=== PATIENT | male | born 1960 | race Caucasian/White ===

== ENCOUNTER 2019-11-13 14:53 | Emergency (ER) | payer OTHER, SELFPAY ==
[2019-11-13 15:06] VITALS: BP 121/77; PULSE 87; RESP 16; TEMP 36.1; O2SAT 100
--- NOTE | 2019-11-13 15:39 | ED.GENADULT ---
HPI - General Adult General Chief complaint: Ear Stated complaint: ear problems Time Seen by Provider: 11/13/19 15:39 Source: patient and RN notes reviewed Mode of arrival: ambulatory Limitations: no limitations History of Present Illness HPI narrative: 59-year-old male presents with complaints of right ear having thick white flaky content in it after treatment for Otitis Externa (11/06/19-11/12/19) for 1 day. Spouse flushed ears out. J Carlos denies itching and drainage from RT ear. J Carlos says RT ear feels better but spouse wants him evaluated. Initially was scuba diving got water into ears. Denies trouble hearing. Denies URI symptoms, No high fevers or chills. Denies injury to the ear. No nasal drainage and congestion. Denies nausea, vomiting, tinnitus, and dizziness. The patient reports he have not been diagnosed with COVID-19. The patient reports he is not waiting for the results of a COVID-19 lab test. The patient reports he do not have fever, chills, weakness, fatigue, myalgia, or facial swelling. The patient reports he do not have a new or worsening cough or shortness of breath. Denies chest pain. The patient reports he do not have any rhinorrhea, congestion, sore throat, nausea, vomiting, abdominal pain, and diarrhea. Tolerating po intake well. Denies recent traveling. Denies concerns for COVID-19 or exposures been home with limited outdoor exposure except for essential household needs, work, and return home. At this time, patient is not suspected of having COVID-19. Some parts of this dictation were generated by voice recognition software and may contain typographical and/or grammatical inaccuracies. Related Data Home Medications Medication Instructions Recorded Confirmed Multivitamin 50 Plus 11/13/19 Allergies Allergy/AdvReac Type Severity Reaction Status Date / Time No Known Allergies Allergy Unknown Unverified 02/09/19 18:17 No Known Allergies Allergy Uncoded 02/09/19 18:17 Review of Systems Review of Systems: Narrative: CONSTITUTIONAL: Denies fever, chills, sweats. EYES: Denies visual changes, redness, discharge. ENT: Denies rhinorrhea, congestion, sore throat otalgia, ear drainage and itching. Complains of white flaky content in RT ear. CARDIOVASCULAR: Denies chest pain, palpitations, edema. RESPIRATORY: Denies dyspnea, wheezing, cough. GASTROINTESTINAL: Denies abdominal pain, nausea, vomiting, diarrhea. GENITOURINARY: Denies dysuria, hematuria, abnormal discharge. SKIN: Denies rash or itching. MUSCULOSKELETAL: Denies acute back pain, joint pain, or myalgia. NEUROLOGIC: Denies numbness or focal weakness. PSYCHIATRIC: Denies anxiety or depression. All systems reviewed & are unremarkable except as noted in HPI and below. COUNTS INCLUDE 234 BEDS AT THE [facility] Past Medical History Medical History (Updated 11/20/19 @ 01:31 by SMITHA Strauss) Back pain DVT of lower extremity (deep venous thrombosis) Surgical History Surgical History (Updated 11/20/19 @ 01:31 by SMITHA Strauss) History of lumbar discectomy Family History Family History (Updated 11/20/19 @ 01:32 by SMITHA Strauss) Father No problems noted. Social History Social History (Updated 11/20/19 @ 01:33 by SMITHA Strauss) Smoking status: Never smoker Second hand tobacco smoke exposure: No Alcohol intake: current Substance use: never Living arrangements: with family Occupation/Education: occupation Gender identity (if verbalized by the patient): Male Sexual Orientation (if Verbalized by the Patient): Straight or Heterosexual Comments At time of signature, I have reviewed and agree with nursing past medical, surgical, social, and family history. Please see nursing chart for further information. There is no relevant family history pertinent to the presenting complaint. Exam Narrative: Exam Narrative: GENERAL: This is a well-nourished, well-developed patient, in no apparent distr
== END 2019-11-13 16:10 | disposition home or self-care (01) ==
PROVIDERS: Emergency Provider Nurse Practitioner Family; PCP Family Medicine Adolescent Medicine
DX: B48.8 Other specified mycoses (principal); Z86.718 Personal history of other venous thrombosis and embolism
CPT/HCPCS: 99211; G0463

== ENCOUNTER 2020-07-07 16:59 | Outpatient (CLI) | payer OTHER, SELFPAY | END 2020-07-07 17:00 | disposition home or self-care (01) | LOC: ANHCOVIDVC 16:59 | PROVIDERS: PCP Family Medicine Adolescent Medicine | DX: Z23 Encounter for immunization (principal) | CPT/HCPCS: 0001A; 91300 ==

== ENCOUNTER 2020-07-28 16:58 | Outpatient (CLI) | payer OTHER, SELFPAY | END 2020-07-28 16:59 | disposition home or self-care (01) | LOC: ANHCOVIDVC 16:58 | PROVIDERS: PCP Family Medicine Adolescent Medicine | DX: Z23 Encounter for immunization (principal) | CPT/HCPCS: 0002A; 91300 ==

== ENCOUNTER → 2021-04-23 16:21 | Outpatient (REF) | payer OTHER, SELFPAY | LOC: ANHLAB 16:21 | PROVIDERS: PCP Family Medicine Adolescent Medicine; Visit Provider Nurse Practitioner | DX: L98.9 Disorder of the skin and subcutaneous tissue, unspecified (principal) | CPT/HCPCS: 88305; 88342 ==

== ENCOUNTER → 2021-05-28 | Outpatient (REF) | payer OTHER, SELFPAY | END | disposition home or self-care (01) | LOC: ANHLAB 13:20 | PROVIDERS: PCP Family Medicine Adolescent Medicine; Visit Provider Nurse Practitioner | DX: C43.4 Malignant melanoma of scalp and neck (principal) | CPT/HCPCS: 88305; 88342 ==

== ENCOUNTER → 2021-07-10 15:45 | Outpatient (REF) | payer OTHER, SELFPAY | LOC: ANHLAB 15:45 | PROVIDERS: PCP Family Medicine Adolescent Medicine; Visit Provider Nurse Practitioner | DX: L98.9 Disorder of the skin and subcutaneous tissue, unspecified (principal) | CPT/HCPCS: 88305; 88342 ==

== ENCOUNTER 2024-03-08 00:15 | Day surgery (SDC) | payer MEDICARE, SELFPAY ==
[2024-02-24 15:10] VITALS: BMI 24.0
[2024-03-08 07:29] VITALS: BP 133/81; PULSE 80; TEMP 36.1; O2SAT 100
[2024-03-08] MEDS: LACTATED RINGERS 1,000 ML 150 ML IV CONT (07:38)
--- NOTE | 2024-03-08 07:53 | WPDANESEPPF ---
Anes - Initial Pre Proc Eval Procedure: Operation Date: 03/08/24 08:30 Proposed Procedures p Colonoscopy - Mendoza Arellano MD Date/Time: 03/08/24 07:53 Surgeon: Mendoza Arellano MD Pre Op Diagnosis: hx of colon polyps, family hx of cancer Patient Data Age: 63 Gender: M Height: 1.78 m Weight: 75.2 kg Last Vital Signs Temp 36.1 C L 03/08/24 07:29 Pulse 80 03/08/24 07:29 BP 133/81 03/08/24 07:29 Pulse Ox 100 03/08/24 07:29 O2 Del Method Room Air 03/08/24 07:29 Allergies Allergy/AdvReac Type Severity Reaction Status Date / Time Augmentin AdvReac Intermediate Diarrhea Uncoded 03/08/24 07:21 Home Medications Medication Instructions Recorded Confirmed Type Multivitamin 50 Plus 1 tablet PO DAILY 11/13/19 03/08/24 History Patient hx anesthesia problems: none Family hx anesthesia problems: none Results Review: All pre-operative results and documents have been reviewed as part of the pre-operative evaluation. [facility] Past Medical History Medical History Back pain DVT of lower extremity (deep venous thrombosis) Surgical History Surgical History History of lumbar discectomy History of tonsillectomy Family History Family History Father No problems noted. Mother Carcinoma of colon COPD (chronic obstructive pulmonary disease) Social History Social History Smoking status: Never smoker Second hand tobacco smoke exposure: No Alcohol intake: current Drinks per week: 3 Alcohol use details: Glass of red wine once or twice per week. Substance use: never Substance use type: does not use Living arrangements: with family Occupation/Education: occupation Gender identity (if verbalized by the patient): Male Sexual Orientation (if Verbalized by the Patient): Straight or Heterosexual Spiritual care concerns: No Anes - Eval Final PreProcedure Day of Procedure 03/08/24 07:53 Patient weight: normal Heart: regular rate and rhythm Lungs: clear to auscultation Airway: Mallampati scale class II Neurological: alert and oriented Last oral intake: >/= 8 hours ASA classification: II Emergent: no Anesthetic plan: proceed Anesthesia type and monitoring: general GIVS and standard monitoring Results Review: All pre-operative results and documents have been reviewed as part of the pre-operative evaluation. Informed Consent: The patient's anesthetic plan and its attendant risks and benefits were discussed with the patient/family/POA. Questions were solicited and answers provided to the satisfaction of the patient/family/POA.
--- NOTE | 2024-03-08 08:25 | PM.IMHP ---
H&P: HPI History of Present Illness Date/Time: 03/08/24 08:25 Chief Complaint: history of colon polyps - Family history of colon cancer Narrative: The patient has a history of colonic polyps, the last colonoscopy was approximately 4 years ago. in addition, his mother had colorectal cancer. Review of Systems Review of Systems: All systems reviewed & are unremarkable except as noted in HPI and below PMFSH Past Medical History Medical History Back pain DVT of lower extremity (deep venous thrombosis) Surgical History Surgical History History of lumbar discectomy History of tonsillectomy Family History Family History Father No problems noted. Mother Carcinoma of colon COPD (chronic obstructive pulmonary disease) Social History Social History Smoking status: Never smoker Second hand tobacco smoke exposure: No Alcohol intake: current Drinks per week: 3 Alcohol use details: Glass of red wine once or twice per week. Substance use: never Substance use type: does not use Living arrangements: with family Occupation/Education: occupation Gender identity (if verbalized by the patient): Male Sexual Orientation (if Verbalized by the Patient): Straight or Heterosexual Spiritual care concerns: No Meds Home Medications and Allergies Home Medications Medication Instructions Recorded Confirmed Type Multivitamin 50 Plus 1 tablet PO DAILY 11/13/19 03/08/24 History Allergies Allergy/AdvReac Type Severity Reaction Status Date / Time Augmentin AdvReac Intermediate Diarrhea Uncoded 03/08/24 07:21 Vital Signs Vital Signs - 24 hr 03/08/24 07:29 Temperature 97 F L Pulse Rate 80 Blood Pressure 133/81 Pulse Oximetry 100 Oxygen Delivery Room Air Exam Const: General: cooperative and healthy appearing Resp: Effort & Inspection: normal respiratory effort and able to speak in complete sentences Auscultation: clear to auscultation bilaterally Cardio: Rate: regular rate Rhythm: regular rhythm GI: Inspection: normal to inspection GI Palp: No No hepatosplenomegaly present Auscultation: normal bowel sounds Rectal Exam: deferred Skin: General skin exam: normal color Psych: Appearance: grossly normal Mental Status: mental status grossly normal Assessment and Plan Assessment and plan (1) History of colonic polyps: Code(s): Z86.0100 - Personal history of colon polyps, unspecified Status: Acute Assessment and Plan: The patient is deemed a good candidate for the procedure. Consent signed. Will proceed. (2) Family history of colon cancer: Code(s): Z80.0 - Family history of malignant neoplasm of digestive organs Status: Acute
[2024-03-08 08:51] VITALS: BP 104/68; PULSE 56; RESP 21; O2SAT 100
[2024-03-08 09:01] VITALS: BP 110/69; PULSE 56; RESP 22; O2SAT 100
[2024-03-08 09:11] VITALS: BP 114/83; PULSE 57; RESP 20; O2SAT 100
== END 2024-03-08 09:34 | disposition home or self-care (01) ==
PROVIDERS: PCP Family Medicine Adolescent Medicine; Referring Provider Nurse Practitioner Family; Visit Provider Internal Medicine Gastroenterology
PROC: 0DJD8ZZ Inspection of Lower Intestinal Tract, Via Natural or Artificial Opening Endoscopic (ICD-10-PCS; CPT 45378; principal; 2024-03-08 08:30)
DX: Z12.11 Encounter for screening for malignant neoplasm of colon (principal); K57.30 Diverticulosis of large intestine without perforation or abscess without bleeding; Z98.890 Other specified postprocedural states; Z98.1 Arthrodesis status; Z86.0100 Personal history of colon polyps, unspecified; Z86.718 Personal history of other venous thrombosis and embolism; Z80.0 Family history of malignant neoplasm of digestive organs
CPT/HCPCS: G0105; J2704; J7120